=== PATIENT | female | born 1980 | race Caucasian/White ===

== ENCOUNTER 2016-12-01 08:00 | Outpatient (CLI) | payer MEDICAID | END 2016-12-01 08:01 | disposition home or self-care (01) | DX: Z79.899 Other long term (current) drug therapy (principal) ==

== ENCOUNTER 2017-07-06 14:48 | Outpatient (CLI) | payer MEDICAID ==
[2017-07-06 18:15] LABS: BASOPHILS # (AUTO) 0.1 10^3/uL (0.0-0.1); BASOPHILS % (AUTO) 0.7 %; EOSINOPHILS # (AUTO) 0.1 10^3/uL (0.0-0.7); HCT - HEMATOCRIT 39.5 % (37.0-47.0); HGB - HEMOGLOBIN 13.1 g/dL (12.0-16.0); LYMPHOCYTES # (AUTO) 2.2 10^3/uL (1.5-3.5); LYMPHOCYTES % (AUTO) 30.1 %; MEAN CORPUSCULAR HEMOGLOBIN 29.3 pg (27.0-31.0); MEAN CORPUSCULAR HGB CONC 33.2 g/dL (32.0-36.0); MEAN CORPUSCULAR VOLUME 88.2 fL (81.0-99.0); MEAN PLATELET VOLUME 8.1 fL (7.9-10.8); MONOCYTES # (AUTO) 0.4 10^3/uL (0.0-1.0); MONOCYTES % (AUTO) 5.9 %; NEUTROPHILS # (AUTO) 4.5 10^3/uL (1.5-6.6); NEUTROPHILS % (AUTO) 62.3 %; RED BLOOD COUNT 4.47 10^6/uL (4.20-5.40); RED CELL DISTRIBUTION WIDTH 13.4 % (12.0-15.0); UNCORRECTED WHITE BLOOD COUNT 7.3 x10^3/uL; WHITE BLOOD COUNT 7.3 x10^3/uL (4.8-10.8)
[2017-07-06 18:27] LABS: ALBUMIN/GLOBULIN RATIO 1.4 (1.0-2.2); BILIRUBIN,TOTAL 0.3 mg/dL (0.2-1.0); BUN - BLOOD UREA NITROGEN 19 mg/dL (6-20); CALCIUM 9.6 mg/dL (8.5-10.3); CARBON DIOXIDE - CO2 28 mmol/L (21-32); CHLORIDE 102 mmol/L (101-111); CREATININE 0.8 mg/dL (0.4-1.0); GFR - MDRD 81 (>89); GLUCOSE 104 mg/dL (70-100); IRON 37 ug/dL (28-170); SODIUM 137 mmol/L (135-145); TOTAL IRON BINDING CAPACITY 378 ug/dL (250-450); TOTAL PROTEIN 7.6 g/dL (6.7-8.2); TRANSFERRIN 270 mg/dL (192-382)
[2017-07-06 18:53] LABS: THYROID STIMULATING HORMONE 1.32 uIU/mL (0.34-5.60)
== END 2017-07-06 14:49 | disposition home or self-care (01) ==
LOC: LAB.F 14:48
PROVIDERS: ATTEND Nurse Practitioner Family
DX: R53.82 Chronic fatigue, unspecified (principal); N39.0 Urinary tract infection, site not specified
CPT/HCPCS: 36415; 80050; 81001; 82607; 83540; 84466; 87086

== ENCOUNTER 2017-07-09 10:41 | Outpatient (CLI) | payer MEDICAID ==
[2017-07-09 17:48] LABS: BILIRUBIN,URINE NEGATIVE (NEGATIVE)
[2017-07-09 18:15] LABS: UR CULTURE IF IND NOT INDICATED; WBC,URINE 0-3 /HPF (0-5)
== END 2017-07-09 10:42 | disposition home or self-care (01) ==
LOC: LAB.F 10:41
PROVIDERS: ATTEND Nurse Practitioner Family
DX: N39.0 Urinary tract infection, site not specified (principal)
CPT/HCPCS: 81001; 87086

== ENCOUNTER 2017-11-03 11:19 | Emergency (ER) | payer MEDICAID ==
[2017-11-03] MEDS ORDERED: TETANUS/DIPHTHERIA/PERTUSSIS 0.5 ML SYRINGE IM ONE ×2 (12:32→12:44)
[2017-11-03] MEDS ORDERED: AMOX/CLAV 875 MG/125 MG TABLET PO STA (12:32)
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
[2017-11-03] MEDS ORDERED: AMOX/CLAV 875 MG/125 MG TABLET PO ONE (12:42)
[2017-11-03 13:13] VITALS: BP 117/87
== END 2017-11-03 13:23 | disposition home or self-care (01) ==
LOC: ED 11:19
DX: S61.432A Puncture wound without foreign body of left hand, initial encounter (principal); W61.92XA Struck by other birds, initial encounter; Z23 Encounter for immunization
CPT/HCPCS: 90471; 90715; 96372; 99283; A9270

== ENCOUNTER 2018-02-08 08:59 | Day surgery (SDC) | payer MEDICAID ==
[~2018-02-08 08:59] MED LIST: LACTATED RINGERS 1,000 ML IV ONE
[2018-02-08 09:27] LABS: HCG UR QUAL NEGATIVE
[2018-02-08] MEDS ORDERED: BUPIVACAINE 0.25% PF 30 ML VIAL ONE (11:28)
[2018-02-08] MEDS ORDERED: LIDOCAINE MPF 1%-EPI 1:200000 30 ML VIAL ONE (11:28)
[2018-02-08] MEDS ORDERED: MIDAZOLAM 2 MG/2 ML VIAL IVP ONE (11:50)
[2018-02-08] MEDS ORDERED: fentaNYL 250 MCG/5 ML VIAL IVP ONE (11:50)
[2018-02-08] MEDS ORDERED: KETOROLAC 30 MG/ML VIAL IVP ONE (11:50)
[2018-02-08] MEDS ORDERED: methylPREDNISolone ACETATE 40 MG/ML VIAL IM ONE ×2 (11:57)
[2018-02-08] MEDS ORDERED: methylPREDNISolone ACETATE 40 MG/ML VIAL ONE (12:00)
[2018-02-08 13:44] VITALS: BP 126/72
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
== END 2018-02-08 09:00 | disposition home or self-care (01) ==
LOC: SDS 08:59
PROVIDERS: ATTEND Orthopaedic Surgery
PROC: 0LB70ZZ Excision of Right Hand Tendon, Open Approach (ICD-10-PCS; 2018-02-08)
PROC: 0LN80ZZ Release Left Hand Tendon, Open Approach (ICD-10-PCS; principal; 2018-02-08 10:00)
DX: M65.332 Trigger finger, left middle finger (principal); M65.331 Trigger finger, right middle finger
CPT/HCPCS: 26055; 26350; 81025; J1030; J3010; J7120

== ENCOUNTER 2018-02-25 12:19 | Outpatient (CLI) | payer MEDICAID ==
--- NOTE | 2018-02-28 14:05 | Mammography Report ---
DIGITAL SCREENING MAMMOGRAM: 02/25/2018 COMPARISON: None. TECHNIQUE: Bilateral digital CC, exaggerated CC, and MLO projections. FINDINGS: The breast tissue is heterogeneously dense. There are no dominant mass, architectural distortion, skin thickening, suspicious microcalcifications. IMPRESSION: NEGATIVE. BI-RADS 1. SUGGEST ROUTINE ANNUAL SCREENING STARTING AT AGE 40. STANDARD QUALIFYING STATEMENTS 1. This examination was reviewed with the aid of Computer-Aided Detection (CAD) . 2. A negative or benign imaging report should not delay biopsy if clinically suspicious findings are present. Consider surgical consultation if warranted. More than 5 % of cancers are not identified by imaging. 3. Dense breasts may obscure an underlying neoplasm. TD: 02/28/2018 14:04 CELY
== END 2018-02-25 12:20 | disposition home or self-care (01) ==
LOC: DI.S 12:19
PROVIDERS: ATTEND Nurse Practitioner Family
DX: Z80.3 Family history of malignant neoplasm of breast (principal)
CPT/HCPCS: 77067

== ENCOUNTER 2018-04-19 10:15 | Outpatient (CLI) | payer MEDICAID ==
[2018-04-20 07:29] LABS: MUDS CUTOFF CONCENTRATIONS CUTOFF CONC BELOW:
[2018-04-20 07:56] LABS: AMPHETAMINE SCREEN,URINE POSITIVE (NEGATIVE); BENZODIAZEPINES SCREEN, URINE NEGATIVE (NEGATIVE); COCAINE SCREEN URINE NEGATIVE (NEGATIVE); METHADONE SCREEN, URINE NEGATIVE (NEGATIVE); METHAMPHETAMINES SCREEN, URINE NEGATIVE (NEGATIVE); OPIATE SCREEN, URINE NEGATIVE (NEGATIVE); OXYCODONE SCREEN, URINE NEGATIVE (NEGATIVE); PROPOXYPHENE SCREEN, URINE NEGATIVE (NEGATIVE); TRICYCLIC ANTIDEPRESSANT,URINE POSITIVE (NEGATIVE)
== END 2018-04-19 10:16 ==
LOC: LAB.R 10:15
PROVIDERS: ATTEND Nurse Practitioner Family
DX: Z79.891 Long term (current) use of opiate analgesic (principal)
CPT/HCPCS: 80306

== ENCOUNTER 2019-05-10 08:00 | Outpatient (CLI) | payer MEDICAID ==
[2019-05-10 17:44] LABS: BASOPHILS % (AUTO) 0.7 %; EOSINOPHILS # (AUTO) 0.1 10^3/uL (0.0-0.7); EOSINOPHILS % (AUTO) 1.4 %; HGB - HEMOGLOBIN 12.9 g/dL (12.0-16.0); LYMPHOCYTES # (AUTO) 1.8 10^3/uL (1.5-3.5); LYMPHOCYTES % (AUTO) 32.9 %; MEAN CORPUSCULAR HEMOGLOBIN 28.2 pg (27.0-31.0); MEAN CORPUSCULAR HGB CONC 32.5 g/dL (32.0-36.0); MEAN CORPUSCULAR VOLUME 86.9 fL (81.0-99.0); MEAN PLATELET VOLUME 8.1 fL (7.9-10.8); MONOCYTES # (AUTO) 0.5 10^3/uL (0.0-1.0); MONOCYTES % (AUTO) 8.6 %; NEUTROPHILS # (AUTO) 3.1 10^3/uL (1.5-6.6); NEUTROPHILS % (AUTO) 56.4 %; PLT - PLATELET COUNT 331 10^3/uL (130-450); RED BLOOD COUNT 4.57 10^6/uL (4.20-5.40); RED CELL DISTRIBUTION WIDTH 14.3 % (12.0-15.0); WHITE BLOOD COUNT 5.4 x10^3/uL (4.8-10.8)
[2019-05-10 17:59] LABS: ALBUMIN/GLOBULIN RATIO 1.1 (1.0-2.2); BILIRUBIN,TOTAL 0.4 mg/dL (0.2-1.0); CALCIUM 9.3 mg/dL (8.5-10.3); CREATININE 0.7 mg/dL (0.4-1.0); TOTAL PROTEIN 7.5 g/dL (6.7-8.2)
== END 2019-05-10 23:59 ==
LOC: LAB.F 08:00
PROVIDERS: ATTEND Internal Medicine Rheumatology
DX: Z79.899 Other long term (current) drug therapy (principal)
CPT/HCPCS: 36415; 80053; 85025

== ENCOUNTER 2019-07-05 15:03 | Outpatient (CLI) | payer MEDICAID ==
[2019-07-06 11:36] LABS: HEPATITIS A IGM NON-REACTIVE (NON-REACTIVE); HEPATITIS B SURFACE ANTIGEN NON-REACTIVE (NON-REACTIVE); HEPATITIS C ANTIBODY NON-REACTIVE (NON-REACTIVE)
== END 2019-07-05 15:04 | disposition home or self-care (01) ==
LOC: LAB.S 15:03
PROVIDERS: ATTEND Internal Medicine Rheumatology
DX: Z79.899 Other long term (current) drug therapy (principal)
CPT/HCPCS: 36415; 80074; 81599; 86480

== ENCOUNTER 2019-07-12 08:00 | Outpatient (CLI) | payer MEDICAID ==
[2019-07-12 20:40] LABS: CANDIDA GROUP DNA NEGATIVE (NEGATIVE); CANDIDA KRUSEI DNA NEGATIVE (NEGATIVE); TRICHOMONAS VAGINALIS DNA NEGATIVE (NEGATIVE)
== END 2019-07-12 23:59 | disposition home or self-care (01) ==
LOC: LAB.R 08:00
PROVIDERS: ATTEND Physician Assistant Medical
DX: N89.8 Other specified noninflammatory disorders of vagina (principal); R30.0 Dysuria; N39.3 Stress incontinence (female) (male)
CPT/HCPCS: 87086; 87661; 87801

== ENCOUNTER 2020-04-30 07:00 | Outpatient (CLI) | payer MEDICAID ==
[2020-04-30 22:34] LABS: CANDIDA GROUP DNA NEGATIVE (NEGATIVE); CANDIDA KRUSEI DNA NEGATIVE (NEGATIVE); TRICHOMONAS VAGINALIS DNA NEGATIVE (NEGATIVE)
== END 2020-04-30 23:59 | disposition home or self-care (01) ==
LOC: LAB.R 07:00
PROVIDERS: ATTEND Physician Assistant
DX: R30.0 Dysuria (principal)
CPT/HCPCS: 87086; 87661; 87801

== ENCOUNTER 2020-05-15 07:00 | Outpatient (CLI) | payer MEDICAID ==
[2020-05-15 21:58] LABS: CANDIDA GROUP DNA NEGATIVE (NEGATIVE); CANDIDA KRUSEI DNA NEGATIVE (NEGATIVE); TRICHOMONAS VAGINALIS DNA NEGATIVE (NEGATIVE)
== END 2020-05-15 23:59 | disposition home or self-care (01) ==
LOC: LAB.R 07:00
PROVIDERS: ATTEND Registered Nurse
DX: N89.8 Other specified noninflammatory disorders of vagina (principal)
CPT/HCPCS: 87661; 87801

== ENCOUNTER 2021-06-16 14:33 | Outpatient (CLI) | payer MEDICAID ==
[2021-06-16 20:11] LABS: ESTIMATED AVERAGE GLUCOSE 117 mg/dL (70-100); HEMOGLOBIN A1c% 5.7 % (4.27-6.07)
[2021-06-16 20:21] LABS: CALCIUM 9.4 mg/dL (8.5-10.3); CREATININE 0.8 mg/dL (0.4-1.0); POTASSIUM 4.3 mmol/L (3.5-5.0)
[2021-06-16 20:30] LABS: CREATININE,URINE 227.4 mg/dL; MICROALBUM/CREATININE RATIO,UR 3.5 ug/mg (<30.0); MICROALBUMIN,URINE 0.8 mg/dL (0-300.0)
== END 2021-06-16 14:34 | disposition home or self-care (01) ==
LOC: LAB.S 14:33
PROVIDERS: ATTEND Physician Assistant
DX: R73.9 Hyperglycemia, unspecified (principal); R73.01 Impaired fasting glucose
CPT/HCPCS: 36415; 80048; 82043; 82570; 83036

== ENCOUNTER 2021-10-09 07:00 | Outpatient (CLI) | payer MEDICAID | END 2021-10-09 23:59 | disposition home or self-care (01) | LOC: LAB 07:00 | PROVIDERS: ATTEND Registered Nurse | DX: N94.89 Other specified conditions associated with female genital organs and menstrual cycle (principal) | CPT/HCPCS: 87070; 87077; 87181; 87205 ==

== ENCOUNTER 2022-02-16 08:00 | Outpatient (CLI) | payer MEDICAID ==
[2022-02-16 22:50] LABS: BACTERIAL VAGINOSIS DNA POSITIVE (NEGATIVE); CANDIDA GLABRATA DNA NEGATIVE (NEGATIVE); CANDIDA GROUP DNA NEGATIVE (NEGATIVE); CANDIDA KRUSEI DNA NEGATIVE (NEGATIVE); TRICHOMONAS VAGINALIS DNA NEGATIVE (NEGATIVE)
== END 2022-02-16 23:59 ==
LOC: LAB.S 08:00
PROVIDERS: ATTEND Physician Assistant
DX: N39.0 Urinary tract infection, site not specified (principal); N76.0 Acute vaginitis
CPT/HCPCS: 87086; 87661; 87801

== ENCOUNTER 2022-03-13 08:00 | Outpatient (CLI) | payer MEDICAID ==
[2022-03-13 21:59] LABS: BACTERIAL VAGINOSIS DNA POSITIVE (NEGATIVE); CANDIDA GLABRATA DNA NEGATIVE (NEGATIVE); CANDIDA GROUP DNA NEGATIVE (NEGATIVE); CANDIDA KRUSEI DNA NEGATIVE (NEGATIVE); TRICHOMONAS VAGINALIS DNA NEGATIVE (NEGATIVE)
== END 2022-03-13 08:01 | disposition home or self-care (01) ==
LOC: LAB.S 08:00
PROVIDERS: ATTEND Emergency Medicine
DX: N76.0 Acute vaginitis (principal)
CPT/HCPCS: 81514

== ENCOUNTER 2022-04-07 14:51 | Emergency (ER) | payer MEDICAID ==
--- NOTE | 2022-04-07 17:17 | ED Physician Documentation ---
History of Present Illness - Stated complaint Stated Complaint: DIARRHEA/FEMALE - Chief complaint Chief Complaint: Abd Pain - History obtained from History obtained from: Patient - History of Present Illness Pain level max: 0 Pain level now: 0 - Additonal information Additional information: Patient is a 41-year-old female who presents to the emergency department complaining of diarrhea intermittently for about 6 months. She states worse over the past 3 days. She states that she also has recurrent bacterial vaginitis, she feels like this occurs every time she has the diarrhea. Has been treated with Flagyl in the past. She also feels like she has hemorrhoids. She states that they feel like they are inflamed, but not bleeding. Review of Systems Constitutional: denies: Fever, Chills Respiratory: denies: Cough GI: reports: Diarrhea. denies: Vomiting, Hematemesis, Bloody / black stool : denies: Dysuria Skin: denies: Rash Musculoskeletal: denies: Neck pain, Back pain Neurologic: denies: Headache PD PAST MEDICAL HISTORY - Past Medical History Past Medical History: Yes : Incontinence, Nocturia, Frequency Psych: ADD/ADHD Musculoskeletal: Fibromyalgia, Rheumatoid arthritis - Past Surgical History Past Surgical History: Yes General: Appendectomy Ortho: Carpal Tunnel surgery - Present Medications Home Medications: Ambulatory Orders Medication Instructions Recorded Confirmed Ibuprofen 800 mg PO TID PRN 11/03/17 09/21/19 Tramadol HCl 50 mg PO TID PRN 11/03/17 09/21/19 Cholecalciferol (Vitamin D3) 1,000 unit PO DAILY 02/04/18 09/21/19 [Vitamin D3] Lidocaine Ointment 5% [Xylocaine 0 gm TOP QID PRN 02/04/18 09/21/19 Ointment 5%] Dextroamphetamine/Amphetamine 30 mg PO DAILY 09/21/19 09/21/19 [Dextroamp-Amphet ER 30 mg Cap] Duloxetine HCl [Cymbalta] 60 mg PO BID 09/21/19 09/21/19 Etanercept [Enbrel] 50 mg SQ ONCE 09/21/19 09/21/19 Gabapentin [Neurontin] 800 mg PO TID 09/21/19 09/21/19 Melatonin 10 mg SL DAILY PM 09/21/19 09/21/19 Ondansetron [Ondansetron Odt] 4 mg PO Q8HR PRN 09/21/19 09/21/19 Hydrocortisone Acetate 25 mg RC DAILY PRN #14 supp.rect 04/07/22 Tinidazole 1,000 mg PO DAILY 5 Days #10 tablet 04/07/22 - Allergies Allergies/Adverse Reactions: Allergies Allergy/AdvReac Type Severity Reaction Status Date / Time No Known Drug Allergies Allergy Verified 04/07/22 15:02 - Social History Does the pt smoke?: No Smoking Status: Never smoker Does the pt drink ETOH?: No Does the pt have substance abuse?: No - Immunizations Immunizations are current?: No Immunizations: TDAP >10years/unknown - POLST Patient has POLST: No PD ED PE NORMAL - Vitals Vital signs reviewed: Yes - General General: Alert and oriented X 3, No acute distress, Well developed/nourished - HEENT HEENT: PERRL, Moist mucous membranes - Neck Neck: Supple, no meningeal sign - Cardiac Cardiac: RRR, Strong equal pulses - Respiratory Respiratory: No respiratory distress, Clear bilaterally - Abdomen Abdomen: Soft, Non tender, Non distended - Female Female : 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 Normal-appearing cervix and vaginal hogue. The discharge is thin and white. Normal rectal exam other than a few small external hemorrhoids which are not inflamed or thrombosed.) - Derm Derm: Warm and dry, No rash - Neuro Neuro: Alert and oriented X 3 - Psych Psych: Normal mood, Normal affect Results - Vitals Vitals: Vital Signs - 24 hr 04/07/22 04/07/22 14:56 19:11 Temperature 36.4 C L Heart Rate 88 75 Respiratory 14 18 Rate Blood Pressure 117/68 135/84 H O2 Saturation 99 99 Oxygen O2 Source Room air - Labs Labs: Laboratory Tests 04/07/22 04/07/22 16:44 16:44 Urine Color DARK YELLOW Urine Clarity CLEAR Urine pH 5.5 Ur Specific [place] 1.025 Urine Protein NEGATIVE Urine Glucose (UA) NEGATIVE Urine Ketones NEGATIVE Urine Occult Blood SMALL H Urine Nitrite NEGATIVE Urine Bilirubin NEGATIVE Urine Urobilinogen 0.2 (NORMAL) Ur Leukocyte Esterase NEGATIVE Urine RBC 6-10 H Urine WBC 0-3 Ur Squamous Epith Cells FEW Squamous Urine Bacteria Rare Ur Microscopic Review INDICATED Urine Culture Comments NOT INDICATED C. glabrata (PCR) NEGATIVE C. krusei (PCR) NEGATIVE Lesley species DNA NEGATIVE T. vaginalis (PCR) NEGATIVE Bact Vaginosis (PCR) NEGATIVE PD MEDICAL DECISION MAKING - ED course Complexity details: reviewed results, re-evaluated patient, considered diff erential, d/w patient ED course: No acute findings on urinalysis, appears contaminated with squamous cells. She will await results of the PCR, but given her recurrent bacterial vaginitis, we will trial her on Tinidazole. Patient had firm stool here. No evidence of C. difficile. The C. difficile was canceled because of the hard stool. Stool culture was still performed. We will have her follow-up with her doctor for further work-up and treatment of her chronic diarrhea. Patient counseled regarding signs and symptoms for which I believe and urgent re-evaluation would be necessary. Patient with good understanding of and agreement to plan and is comfortable going home at this time This document was made in part using voice recognition software. While efforts are made to proofread this document, sound alike and grammatical errors may occur. We will also trial the patient on hydrocortisone suppositories for her hemorrhoids. Departure - Departure Disposition: 01 Home, Self Care Clinical Impression: Bacterial vaginitis Diarrhea Qualifiers: Diarrhea type: unspecified type Qualified Code(s): R19.7 - Diarrhea, unspecified Hemorrhoids Qualifiers: Hemorrhoid type: unspecified Qualified Code(s): K64.9 - Unspecified hemorrhoids Condition: Good Instructions: ED Hemorrhoids, ED Vaginosis Bacterial Follow-Up: Jessica Cabral ARNP [Primary Care Provider] - Within 1 week [facility] [Provider Group] Kunal Meza MD [Provider Admit Priv/Credential] - Kunal Murray MD [Physician No Access] - Prescriptions: Hydrocortisone Acetate 25 mg RC DAILY PRN #14 supp.rect PRN Reason: Hemorrhoids Tinidazole 1,000 mg PO DAILY 5 Days #10 tablet Comments: Please follow-up with your doctor for further care. Your stool culture should be back in 1 to 2 days. We will call you if antibiotics are needed. We will presumptively treat for bacterial vaginitis. We will also place you on rectal steroids for the hemorrhoids. I would recommend that you do not use these for longer than 1 week at a time. You can also trial sitz bath at home. Your prescriptions were sent to [facility] in [place].
[2022-04-07 17:46] LABS: BILIRUBIN,URINE NEGATIVE (NEGATIVE); GLUCOSE, URINE (UA) NEGATIVE (NEGATIVE); KETONES,URINE (UA) NEGATIVE (NEGATIVE); LEUKOCYTE ESTERASE, URINE NEGATIVE (NEGATIVE); NITRITE,URINE NEGATIVE (NEGATIVE); OCCULT BLOOD,URINE SMALL (NEGATIVE); PH,URINE 5.5 PH (5.0-7.5); PROTEIN,URINE NEGATIVE (NEGATIVE); UROBILINOGEN,URINE 0.2 (NORMAL) E.U./dL (NORMAL)
[2022-04-07 17:53] LABS: CLARITY,URINE CLEAR (CLEAR)
[2022-04-07 18:04] LABS: BACTERIA,URINE Rare /HPF (None Seen); SQUAMOUS EPITHELIAL CELL,UR FEW Squamous (<= Few); WBC,URINE 0-3 /HPF (0-5)
[2022-04-07 19:12] VITALS: BP 135/84
[2022-04-07 19:12] LABS: BACTERIAL VAGINOSIS DNA NEGATIVE (NEGATIVE); CANDIDA GLABRATA DNA NEGATIVE (NEGATIVE); CANDIDA GROUP DNA NEGATIVE (NEGATIVE); CANDIDA KRUSEI DNA NEGATIVE (NEGATIVE); TRICHOMONAS VAGINALIS DNA NEGATIVE (NEGATIVE)
--- NOTE | 2022-04-07 20:45 | ED Physician Documentation ---
ED Addendum - Addendum Addendum: 04/07/22 20:45 Patient requested antidiarrheal medication. Lomotil was added. Patient will follow up with GI to evaluate for the cause of her diarrhea including inflammatory bowel disease, irritable bowel syndrome, celiac disease, etc.
[2022-04-07 23:02] LABS: CHLAMYDIA TRACHOMATIS DNA NEGATIVE (NEGATIVE); NEISSERIA GONORRHOEAE DNA NEGATIVE (NEGATIVE)
== END 2022-04-07 20:50 | disposition home or self-care (01) ==
LOC: ED 14:51
DX: N76.0 Acute vaginitis (principal); R19.7 Diarrhea, unspecified; K64.9 Unspecified hemorrhoids
CPT/HCPCS: 81001; 81003; 81514; 87045; 87046; 87086; 87427; 87491; 87493; 87591; 87661; 99283

== ENCOUNTER 2022-05-12 14:45 | Outpatient (CLI) | payer MEDICAID ==
[2022-05-12 20:05] LABS: ABSOLUTE RETICS # AUTO 0.067 10^6/uL (0.020-0.110); BASOPHILS # (AUTO) 0.1 10^3/uL (0.0-0.1); BASOPHILS % (AUTO) 0.9 %; EOSINOPHILS # (AUTO) 0.1 10^3/uL (0.0-0.7); HCT - HEMATOCRIT 43.5 % (37.0-47.0); HGB - HEMOGLOBIN 13.5 g/dL (12.0-16.0); LYMPHOCYTES # (AUTO) 1.8 10^3/uL (1.5-3.5); LYMPHOCYTES % (AUTO) 32.4 %; MEAN CORPUSCULAR HEMOGLOBIN 28.1 pg (27.0-31.0); MEAN CORPUSCULAR VOLUME 90.6 fL (81.0-99.0); MEAN PLATELET VOLUME 9.6 fL (7.9-10.8); MONOCYTES # (AUTO) 0.5 10^3/uL (0.0-1.0); MONOCYTES % (AUTO) 9.4 %; NEUTROPHILS % (AUTO) 55.1 %; PLT - PLATELET COUNT 405 10^3/uL (130-450); RED CELL DISTRIBUTION WIDTH 13.2 % (12.0-15.0); WHITE BLOOD COUNT 5.4 x10^3/uL (4.8-10.8)
[2022-05-12 20:25] LABS: % IRON SATURATION 11 % (20-50); ALBUMIN 4.2 g/dL (3.2-5.5); ALBUMIN/GLOBULIN RATIO 1.1 (1.0-2.2); ALKALINE PHOSPHATASE 65 IU/L (42-121); ALT ALANINE AMINOTRANSFERASE 18 IU/L (10-60); AST ASPARTATE AMINOTRANSFERASE 25 IU/L (10-42); BILIRUBIN,TOTAL 0.3 mg/dL (0.2-1.0); BUN - BLOOD UREA NITROGEN 14 mg/dL (6-20); CALCIUM 9.6 mg/dL (8.5-10.3); CARBON DIOXIDE - CO2 31 mmol/L (21-32); CHLORIDE 102 mmol/L (101-111); CHOL/HDL RATIO 5.5 (<4.4); CHOLESTEROL 317 mg/dL; CREATININE 0.8 mg/dL (0.4-1.0); GFR - MDRD 79 (>89); GLUCOSE 92 mg/dL (70-100); HDL CHOLESTEROL 58 mg/dL; IRON 47 ug/dL (28-170); LDL CHOLESTEROL,CALCULATED 219 mg/dL; LDL/HDL RATIO 3.8 (<4.4); POTASSIUM 4.5 mmol/L (3.5-5.0); SODIUM 140 mmol/L (135-145); TOTAL IRON BINDING CAPACITY 431 ug/dL (250-450); TOTAL PROTEIN 8.1 g/dL (6.7-8.2); TRANSFERRIN 308 mg/dL (192-382); TRIGLYCERIDES 202 mg/dL; VLDL CHOLESTEROL 40 mg/dL
[2022-05-12 20:32] LABS: THYROID STIMULATING HORMONE 1.2 uIU/mL (0.34-5.60)
[2022-05-12 20:40] LABS: FERRITIN 9.6 ng/mL (11.0-306.8)
[2022-05-12 20:43] LABS: FOLATE 9.23 ng/mL (5.90 - >24.8)
[2022-05-14 15:08] LABS: T-TRANSGLUTAMINASE (TTG) IGA <2 U/mL (0-3); T-TRANSGLUTAMINASE (TTG) IGG 4 U/mL (0-5)
== END 2022-05-12 14:46 | disposition home or self-care (01) ==
LOC: LAB.S 14:45
PROVIDERS: ATTEND Registered Nurse
DX: R19.7 Diarrhea, unspecified (principal); Z79.899 Other long term (current) drug therapy; Z13.220 Encounter for screening for lipoid disorders
CPT/HCPCS: 36415; 80050; 80061; 82607; 82728; 82746; 83516; 83540; 83721; 84466; 85045

== ENCOUNTER 2022-05-28 08:00 | Outpatient (CLI) | payer MEDICAID | END 2022-05-28 23:59 | disposition home or self-care (01) | LOC: LAB.S 08:00 | PROVIDERS: ATTEND Registered Nurse | DX: R19.7 Diarrhea, unspecified (principal) | CPT/HCPCS: 87045; 87046; 87177; 87205; 87328; 87427 ==

== ENCOUNTER 2023-03-17 08:12 | Outpatient (CLI) | payer MEDICAID ==
[2023-03-17 14:58] LABS: CHOL/HDL RATIO 3.2 (<4.4); CHOLESTEROL 183 mg/dL; HDL CHOLESTEROL 57 mg/dL; LDL CHOLESTEROL,CALCULATED 101 mg/dL; LDL/HDL RATIO 1.8 (<4.4); TRIGLYCERIDES 125 mg/dL; VLDL CHOLESTEROL 25 mg/dL
== END 2023-03-17 08:13 | disposition home or self-care (01) ==
LOC: LAB.S 08:12
PROVIDERS: ATTEND Registered Nurse
DX: E78.5 Hyperlipidemia, unspecified (principal)
CPT/HCPCS: 36415; 80061; 83721

== ENCOUNTER 2024-02-14 08:00 | Outpatient (CLI) | payer MEDICAID ==
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
== END 2024-02-14 23:59 | disposition home or self-care (01) ==
LOC: DI.S 08:00
PROVIDERS: ATTEND Nurse Practitioner
DX: M25.461 Effusion, right knee (principal)